=== PATIENT | female | born 1995 | race Hispanic/Latino ===

== ENCOUNTER 2016-10-22 09:16 | Day surgery (SDC) | payer OTHER ==
[~2016-10-22] VITALS: Ht 177.8 cm; Wt 108.9 kg
[~2016-10-22 09:16] MED LIST: 0.9% Sodium Chloride 1,000 ML IV SCH; AMOX1TAB PO; ETHI1TAB31 PO; HYDR1TAB PO; Sodium Chloride LOK Flush 10 mL Syringe IV PRN; fentaNYL-PF 50 mCg/mL 2 mL Inj IVPUSH PRN
[2016-10-22 09:40] VITALS: BP 136/79; PULSE 67; RESP 17; O2SAT 99
--- NOTE | 2016-10-22 10:11 | PCM.ENDEGD ---
EGD Date of Service: Oct 22, 2016 Physician Shamar Shea MD Pre Procedure Diagnosis: Abdominal pain Post Procedure Dx & Findings: Mild esophageal irritation fundic polyps Procedure Esophagogastroduodenoscopy PROCEDURE IN DETAIL: After proper sedation, Olympus video endoscope was inserted into patient's mouth and esophagus was successfully intubated. Scope introduced esophagus. Esophagus showed normal shiny whitish mucosa consistent with squamous cell component. Z line was at 40 cm from the incisors. Mild redness irregularity noted. Biopsies obtained. Scope further advanced to the stomach. Stomach showed normal shiny mucosa with normal appearing rugae folds without any ulcer mass erosion. Cardia fundus body antrum pylorus were all visualized. Retroflexion was done. Stomach was easily inflated and deflatable using air. In the body of the stomach, there are few 3-4 mm or less fundic polyps. Sampling biopsies obtained. Scope further events to the distal duodenum. Duodenum revealed normal villous structures with normal appearing folds without any mass ulcer erosion. 5 biopsies obtained to rule out celiac. Impression Possible esophagitis Fundic polyps Recommendation Avoid biopsies Follow up GI clinic Presedation Assessment Risks and Benefits Informed consent was obtained from the patient after all risks and benefits including but not limited to drug reaction, infection, pain, bleeding, perforation, as well as alternatives were discussed. Patient monitoring Continuous pulse oximetry, cardiac monitoring, blood pressure monitoring, IV access, and oxygen at 2L per nasal cannula. Periprocedural Fentanyl: Fentanyl 100mcg Incrementally Midazolam: Midazolam 6mg Incrementally Complications There were no periprocedural complications identified. Post Procedure Plan Post Procedure Recommendations 1. Restrict activities today. 2. Resume normal activities in the morning. 3. Resume medications. 4. GERD behavioral modification: - Avoid fatty, acidic, spicy, large meals - Do not lie down after meals - Do not eat or drink anything for at least 2 1/2 hours before going to bed at night - Discontinue tobacco and alcohol - Decrease or avoid caffeine - Avoid chocolate and mints - Decrease weight - Avoid aspirin and non steroidal anti-inflammatory agents (NSAID) such as Aleve, Advil, Mobic, Naproxen, Ibuprofen, etc 5. Add proton pump inhibitor. Take 30 minutes before 1st meal of the day. 6. Patient informed of normal post procedure side effects as bloating, drowsiness, blood streaking in the stool 7. If gastric biopsy reveal H.pylori, continue with appropriate treatment 8. If small bowel biopsy reveals celiac, continue with appropriate treatment 9. Please don't hesitate to call me with any questions Shamar Shea MD Oct 22, 2016 10:11
[2016-10-22 10:15] VITALS: BP 126/70; PULSE 75; RESP 16; O2SAT 98
[2016-10-22 10:20] VITALS: BP 120/67; PULSE 73; RESP 16; O2SAT 98
[2016-10-22 10:30] VITALS: BP 118/66; PULSE 71; RESP 16; O2SAT 100
--- NOTE | 2016-10-29 09:30 | PATH ---
SURGICAL PATHOLOGY Attending Physician:Shamar Shea M.D. CASE STATUS: Signed Out PATIENT NAME: WILLIAM CORDOBA PID: [id number] : 1995 DATE COLLECTED:10/22/2016 16:20 SPECIMEN: 1: Duodenum, Biopsy 2: Stomach, Polyp, Biopsy 3: Esophagus, Biopsy CLINICAL HISTORY: 1. DUODENAL BXS 2. GASTRIC POLYP BX 3. GE BX FINAL DIAGNOSIS: 1. Duodenal Biopsy: Duodenal mucosa with no diagnostic abnormality. Negative for active inflammation, features of sprue, dysplasia, or malignancy. 2. Gastric Polyp, Biopsy: Portions of gastric body-type mucosa x2 with features of fundic gland polyp. Negative for dysplasia and malignancy. 3. Gastroesophageal Biopsy: Portions of mildly inflamed columnar mucosa with no diagnostic abnormality. Negative for dysplasia and malignancy. No intact squamous mucosa identified for evaluation. ICD10: K31.7 GROSS DESCRIPTION: The specimens are received in formalin, labeled with the patient's name, and sublabeled as the following: (1) duodenal bx; (2) gastric polyp; (3) GE BX. (1) The specimen consists of multiple fragments of campos-white glistening rubbery tissue (0.5 x 0.3 x 0.2 cm in aggregate). Section code: (1A) tissue. Specimen entirely submitted. (2) The specimen consists of multiple fragments of campos glistening rubbery semi-consistent tissue (0.5 x 0.2 x 0.1 cm in aggregate). Section code: (2A) tissue. Specimen entirely submitted. (3) The specimen consists of multiple fragments of cerda translucent glistening tissue (0.4 x 0.3 x 0.1 cm in aggregate). Section code: (3A) tissue. Specimen entirely submitted. 10/22/16 ICD-9 CODES: CPT CODES: 1: 48522 2: 66021 3: 51960 Electronically Signed Out Mary Owens MD [facility] [address], [place] [address] Technical component performed at [facility], [facility] [address], [place], [address]
== END 2016-10-22 23:59 | disposition home or self-care (01) ==
LOC: END 09:16
PROVIDERS: ATTEND Internal Medicine
DX: R10.9 Unspecified abdominal pain (principal); K31.7 Polyp of stomach and duodenum
CPT/HCPCS: 43239; 88305; G0500; J2250; J3010; J7030